=== PATIENT | female | born 1980 | race Two or more races ===

== ENCOUNTER 2025-05-05 12:29 | Emergency (ER) | payer MEDICAID, OTHER ==
[~2025-05-05] VITALS: Ht 154.9 cm; Wt 70.3 kg
[2025-05-05 12:36] VITALS: BP 131/80; PULSE 76; RESP 19; TEMP 98; O2SAT 96
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
[2025-05-05] MEDS: ACETAMINOPHEN 325 MG TAB PO ONE (13:15)
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
--- NOTE | 2025-05-05 14:18 | DVH ---
EXAM: XY CHEST XRAY 1 VIEW Indication: pain Technique: Single frontal view of the chest was obtained Comparison: None FINDINGS: Lines and Tubes: None Lungs: No focal consolidation. Pleura: No effusion. No pneumothorax. Cardiomediastinal contours: Unremarkable Bones: No acute osseous abnormality. IMPRESSION: No acute cardiopulmonary disease.
== END 2025-05-05 16:57 | disposition home or self-care (01) ==
LOC: ER 12:29
DX: S45.912A Laceration of unspecified blood vessel at shoulder and upper arm level, left arm, initial encounter (principal); S39.012A Strain of muscle, fascia and tendon of lower back, initial encounter; S16.1XXA Strain of muscle, fascia and tendon at neck level, initial encounter; V43.52XA Car driver injured in collision with other type car in traffic accident, initial encounter; Y93.89 Activity, other specified; Y92.488 Other paved roadways as the place of occurrence of the external cause; Y99.8 Other external cause status
CPT/HCPCS: 71045; 72040; 73030